=== PATIENT | female | born 1930 | race Caucasian/White ===

== ENCOUNTER 2016-07-04 13:13 | Emergency (ER) | payer MEDICARE, OTHER ==
[~2016-07-04] VITALS: Ht 149.9 cm; Wt 70.8 kg
[~2016-07-04 13:13] MED LIST: LOSA25TA4 PO; METO25TA9 PO
--- NOTE | 2016-07-04 14:05 | PHYS DOC ---
Past Medical History Past Medical History: Hypertension Additional Information: nonsmoker Alcohol Use: None Drug Use: None Adult General Chief Complaint Chief Complaint: MULTIPLE COMPLAINTS HPI HPI Patient is a 86 year old female who presents with productive cough for 6 days. She's had fever up to 100.7F at home. She reports feeling lightheaded and states "my head feels like feathers." She has upper abdominal cramping and nausea without vomiting. She denies difficulty breathing, but has intermittent mild chest pain. She's not had any diarrhea or urinary symptoms. She does not have any headache. The patient saw her PCP 3 days ago. She was prescribed Mucinex, a Z-Olvin, and Tessalon Perles for her cough. The lightheaded feeling began after starting the medications. Her PCP is Dr. Tapia. Review of Systems Review of Systems Constitutional: Fever. Eyes: Denies change in visual acuity, redness, or eye pain. [] HENT: Denies ear pain, nasal congestion or sore throat. [] Respiratory: Denies shortness of breath. Reports productive cough. Cardiovascular: Denies palpitations or edema. Reports intermittent chest pain. GI: Denies vomiting, bloody stools or diarrhea. Reports upper abdominal pain and nausea. : Denies dysuria, hematuria or urinary frequency. [] Musculoskeletal: Denies back pain or joint pain. [] Integument: Denies rash or skin lesions. [] Neurologic: Denies headache, focal weakness or sensory changes. Reports feeling lightheaded. Endocrine: Denies polyuria or polydipsia. [] Psych: Denies anxiety or depression. [] All systems reviewed and negative unless otherwise stated in the HPI. Current Medications Current Medications Current Medications Medications (Trade) Dose Ordered Sig/Yordy Start Time Stop Time Status Last Admin Dose Admin Albuterol/ Ipratropium (Duoneb) 3 ml 1X ONCE 07/04/16 14:15 07/04/16 14:16 DC 07/04/16 14:12 3 ML Methylprednisolone Sodium Succinate (Solu-Medrol 125mg Vial) 125 mg 1X ONCE 07/04/16 14:15 07/04/16 14:16 DC 07/04/16 14:47 125 MG Allergies Allergies Allergies Coded Allergies Type Severity Reaction Last Updated Verified Penicillins Allergy Intermediate Swelling 02/18/16 No Physical Exam Physical Exam Constitutional: Well developed, well nourished, no acute distress, non-toxic appearance. [] HENT: Normocephalic, atraumatic, bilateral external ears normal, oropharynx moist, no oral exudates, nose normal. [] Eyes: PERRLA, EOMI, conjunctiva normal, no discharge. [] Neck: Normal range of motion, no tenderness, supple, no stridor. [] Cardiovascular: Heart rate regular rhythm, no murmur [] Lungs & Thorax: Bilateral breath sounds clear to auscultation without wheezes, rales, or rhonchi. Productive cough is heard. Abdomen: Bowel sounds normal, soft, no tenderness, no masses, no pulsatile masses. [] Skin: Warm, dry, no erythema, no rash. [] Back: No tenderness, no CVA tenderness. [] Extremities: No tenderness, no cyanosis, no clubbing, ROM intact, no edema. 2+ DP pulses bilaterally. Neurologic: Alert and oriented X 3, normal motor function, normal sensory function, no focal deficits noted. [] Psychologic: Affect normal, judgement normal, mood normal. [] Current Patient Data Vital Signs Vital Signs Date Time Temp Pulse Resp B/P Pulse Ox O2 Delivery O2 Flow Rate FiO2 07/04/16 16:03 84 18 130/84 98 Room Air 07/04/16 14:27 99.9 99.9 Lab Values Laboratory Tests Test 07/04/16 14:14 07/04/16 14:34 Influenza Type A Antigen Negative (NEGATIVE) Influenza Type B Antigen Negative (NEGATIVE) White Blood Count 9.1x10^3/uL (4.0-11.0) Red Blood Count 4.50x10^6/uL (3.50-5.40) Hemoglobin 13.4g/dL (12.0-15.5) Hematocrit 40.4% (36.0-47.0) Mean Corpuscular Volume 90fL (79-100) Mean Corpuscular Hemoglobin 30pg (25-35) Mean Corpuscular Hemoglobin Concent 33g/dL (31-37) Red Cell Distribution Width 12.8% (11.5-14.5) Platelet Count 157x10^3/uL (140-400) Neutrophils (%) (Auto) 75% (31-73) H Lymphocytes (%) (Auto) 19% (24-48) L Monocytes (%) (Auto) 5% (0-9) Eosinophils (%) (Auto) 0% (0-3) Basophils (%) (Auto) 1% (0-3) Neutrophils # (Auto) 6.8x10^3uL (1.8-7.7) Lymphocytes # (Auto) 1.7x10^3/uL (1.0-4.8) Monocytes # (Auto) 0.5x10^3/uL (0.0-1.1) Eosinophils # (Auto) 0.0x10^3/uL (0.0-0.7) Basophils # (Auto) 0.1x10^3/uL (0.0-0.2) Sodium Level 134mmol/L (136-145) L Potassium Level 3.7mmol/L (3.5-5.1) Chloride Level 98mmol/L (98-107) Carbon Dioxide Level 27mmol/L (21-32) Anion Gap 9 (6-14) Blood Urea Nitrogen 20mg/dL (7-20) Creatinine 1.0mg/dL (0.6-1.0) Estimated GFR (Cockcroft-Gault) 52.3 BUN/Creatinine Ratio 20 (6-20) Glucose Level 130mg/dL (70-99) H Calcium Level 8.9mg/dL (8.5-10.1) Total Bilirubin 0.4mg/dL (0.2-1.0) Aspartate Amino Transferase (AST) 19U/L (15-37) Alanine Aminotransferase (ALT) 17U/L (14-59) Alkaline Phosphatase 46U/L (46-116) Troponin I Quantitative < 0.017ng/mL (0.000-0.055) YF-Nbh-H-Type Natriuretic Peptide 192pg/mL (0-449) Total Protein 7.7g/dL (6.4-8.2) Albumin 3.5g/dL (3.4-5.0) Albumin/Globulin Ratio 0.8 (1.0-1.7) L Laboratory Tests 07/04/16 14:34 Laboratory Tests 07/04/16 14:34 EKG EKG EKG at 1402. Heart rate 74 bpm. Sinus rhythm without any acute ischemic changes or STEMI, as interpreted by Dr. Huber. Radiology/Procedures Radiology/Procedures REASON: cough, soa PROCEDURE: CHEST PA & LATERAL EXAM: Chest, 2 views. HISTORY: Cough. COMPARISON: None. FINDINGS: Frontal and lateral views of the chest are obtained. There is no infiltrate, effusion or pneumothorax. There is basilar atelectasis. There is stable widening of the right paratracheal stripe. The heart is normal in size. There is a moderate hiatal hernia. There is hyperinflation. IMPRESSION: 1. No acute pulmonary finding. 2. Hyperinflation likely due to emphysema. Course & Med Decision Making Course & Med Decision Making Pertinent Labs and Imaging studies reviewed. (See chart for details) The patient is a 86-year-old female who presents with cough, fever, and nausea for one week. She is already on Mucinex, see back, and Tessalon Perles for her cough prescribed by her PCP earlier this week. On exam, her lungs are clear, she is not in respiratory distress, and vitals are stable. She was given a DuoNeb treatment in the emergency department with improvement in her cough. Chest x-ray does not show any pneumonia. EKG is nonischemic. Troponin is negative. Influenza A and B are negative. There are no other significant laboratory abnormalities. I discussed the results with the patient and her son. I reassured her that her results are indicative of a viral infection. I offered prescription for a cough syrup. Patient's son states he will buy some cough drops for her. She states that she will complete her antibiotic course and follow-up with her doctor if she is not improving. Return precautions were discussed. The patient verbalizes understanding and agrees with plan. Dragon Disclaimer Dragon Disclaimer This electronic medical record was generated, in whole or in part, using a voice recognition dictation system. Departure Departure Impression: Primary Impression: Bronchitis Disposition: 01 HOME, SELF-CARE Condition: STABLE Referrals: Gerald TAPIA MD (PCP) Patient Instructions: Acute Bronchitis, [id number] Additional Instructions: Your chest x-ray does not show any pneumonia. Your flu test was negative. Your labs do not show any concerning abnormalities. Please continue the medications prescribed by your doctor. Please follow-up with your doctor if your symptoms continue. Return to the emergency department if you have high fever, shortness of breath, chest pain, or other new or concerning symptoms. CHRISS SIMMONS Jul 04, 2016 14:05
[2016-07-04] MEDS ORDERED: IPRATRPIUM/ALBUTEROL 0.5/2.5MG 3 ML NEBU. NEB ONE (14:15)
[2016-07-04] MEDS ORDERED: methylPREDNISolone SOD SUCC PF 125 MG/2 ML VIAL. IV ONE (14:15)
--- NOTE | 2016-07-04 14:18 | EKG ---
[facility] [address] [place] [address] Test Date: 2016-07-04 Test Time: 14:02:17 Pat Name: GUILLE SANCHEZ Department: Room: Gender: F Clinical Staff Educator: : [id number] Requested By: CHRISS SIMMONS Order Number: [id number] Reading MD: Napoleon Gray Measurements Intervals [place] Rate: 75 P: -21 [place]: 148 QRS: 47 QRSD: 86 T: -8 QT: 366 QTc: 411 Interpretive Statements SINUS RHYTHM NON-SPECIFIC ST/T CHANGES Electronically Signed On 07-06-2016 10:35:25 OXYACETYLENE WELDER by Naploeon Gray
--- NOTE | 2016-07-04 14:23 | RAD ---
EXAM: Chest, 2 views. HISTORY: Cough. COMPARISON: None. FINDINGS: Frontal and lateral views of the chest are obtained. There is no infiltrate, effusion or pneumothorax. There is basilar atelectasis. There is stable widening of the right paratracheal stripe. The heart is normal in size. There is a moderate hiatal hernia. There is hyperinflation. IMPRESSION: 1. No acute pulmonary finding. 2. Hyperinflation likely due to emphysema.
[2016-07-04 14:53] LABS: BASO # 0.1 x10^3/uL (0.0-0.2); BASO % 1 % (0-3); EOS % 0 % (0-3); HEMATOCRIT 40.4 % (36.0-47.0); HEMOGLOBIN 13.4 g/dL (12.0-15.5); LYMPH # 1.7 x10^3/uL (1.0-4.8); LYMPH % 19 % (24-48); MEAN CORPUSCULAR HEMOGLOBIN 30 pg (25-35); MEAN CORPUSCULAR HGB CONC 33 g/dL (31-37); MEAN CORPUSCULAR VOLUME 90 fL (79-100); MONO % 5 % (0-9); NEUT % 75 % (31-73); PLATELET COUNT 157 x10^3/uL (140-400); RED CELL DISTRIBUTION WIDTH 12.8 % (11.5-14.5); WHITE BLOOD COUNT 9.1 x10^3/uL (4.0-11.0)
[2016-07-04 14:54] LABS: OBC FLU VALID
[2016-07-04 15:08] LABS: CALCIUM 8.9 mg/dL (8.5-10.1); GFR 52.3; POTASSIUM 3.7 mmol/L (3.5-5.1)
[2016-07-04 15:12] LABS: ALBUMIN 3.5 g/dL (3.4-5.0); ALBUMIN/GLOBULIN RATIO 0.8 (1.0-1.7); TOTAL BILIRUBIN 0.4 mg/dL (0.2-1.0); TOTAL PROTEIN 7.7 g/dL (6.4-8.2)
[2016-07-04 16:03] VITALS: BP 130/84
== END 2016-07-04 16:06 | disposition home or self-care (01) ==
LOC: ER 13:13
DX: J40 Bronchitis, not specified as acute or chronic (principal); I10 Essential (primary) hypertension; Z88.0 Allergy status to penicillin
CPT/HCPCS: 36415; 71020; 80053; 83880; 84484; 85027; 87804; 93005; 94250; 94640; 96374; 99285; J2930; J7620

== ENCOUNTER 2017-07-30 14:26 | Inpatient (IN) | payer OTHER ==
[2017-07-30 14:40] LABS: POC GLUCOSE 154 mg/dL (70-99)
[2017-07-30 15:12] LABS: ADD MAN DIFF? NO
[2017-07-30 15:16] LABS: BASO # 0.1 x10^3/uL (0.0-0.2); BASO % 1 % (0-3); EOS # 0.2 x10^3/uL (0.0-0.7); EOS % 3 % (0-3); HEMATOCRIT 39.7 % (36.0-47.0); HEMOGLOBIN 13.2 g/dL (12.0-15.5); LYMPH % 28 % (24-48); MEAN CORPUSCULAR HEMOGLOBIN 30 pg (25-35); MEAN CORPUSCULAR HGB CONC 33 g/dL (31-37); MEAN CORPUSCULAR VOLUME 91 fL (79-100); MONO # 0.5 x10^3/uL (0.0-1.1); MONO % 6 % (0-9); NEUT # 4.6 x10^3uL (1.8-7.7); NEUT % 63 % (31-73); PLATELET COUNT 199 x10^3/uL (140-400); RED BLOOD COUNT 4.37 x10^6/uL (3.50-5.40); RED CELL DISTRIBUTION WIDTH 13.4 % (11.5-14.5); WHITE BLOOD COUNT 7.3 x10^3/uL (4.0-11.0)
[2017-07-30 15:42] LABS: ANION GAP 9 (6-14); BLOOD UREA NITROGEN 21 mg/dL (7-20); CALCIUM 8.8 mg/dL (8.5-10.1); CARBON DIOXIDE 28 mmol/L (21-32); CHLORIDE 102 mmol/L (98-107); GFR 52.2; GLUCOSE 160 mg/dL (70-99); POTASSIUM 3.4 mmol/L (3.5-5.1); SODIUM 139 mmol/L (136-145)
[2017-07-30 15:47] LABS: TROPONINI < 0.017 ng/mL (0.000-0.055)
[2017-07-30 15:49] LABS: ALBUMIN 3.3 g/dL (3.4-5.0); ALK PHOS 48 U/L (46-116); ALT (SGPT) 20 U/L (14-59); AST (SGOT) 16 U/L (15-37); DIRECT BILIRUBIN 0.1 mg/dL (0.0-0.2); LIPASE 161 U/L (73-393); TOTAL BILIRUBIN 0.3 mg/dL (0.2-1.0); TOTAL PROTEIN 7.6 g/dL (6.4-8.2)
[2017-07-30 15:59] LABS: PARTIAL THROMBOPLASTIN TIME 24 SEC (24-38); PROTHROMBIN TIME PATIENT 12.5 SEC (11.7-14.0)
[2017-07-30 17:12] LABS: BILIRUBIN,URINE NEGATIVE (NEG); CLARITY,URINE CLEAR; COLOR,URINE YELLOW; GLUCOSE,URINE NEGATIVE (NEG); NITRITE,URINE NEGATIVE (NEG); PH,URINE 5.5; PROTEIN,URINE NEGATIVE (NEG-TRACE); UROBILINOGEN,URINE 0.2 mg/dL (0.2 mg/dL)
[2017-07-30 17:17] LABS: BACTERIA,URINE FEW /HPF (0-FEW); RBC,URINE 0 /HPF (0-2); SQUAMOUS EPITHELIAL CELL,UR MOD /LPF
[2017-07-30] MEDS ORDERED: ONDANSETRON PF 4 MG/2 ML VIAL. IV (17:30)
[2017-07-30] MEDS ORDERED: MORPHINE SULFATE 2 MG/ML DISP.SYRIN. IV (17:30)
[2017-07-30] MEDS: cloNIDine HCL 0.1 MG TABLET PO (19:46)
[2017-07-31 05:58] LABS: ANION GAP 6 (6-14); BLOOD UREA NITROGEN 17 mg/dL (7-20); CALCIUM 8.6 mg/dL (8.5-10.1); CARBON DIOXIDE 28 mmol/L (21-32); CHLORIDE 104 mmol/L (98-107); CREATININE 0.8 mg/dL (0.6-1.0); GFR 67.5; GLUCOSE 100 mg/dL (70-99); POTASSIUM 3.7 mmol/L (3.5-5.1); SODIUM 138 mmol/L (136-145)
[2017-07-31] MEDS ORDERED: cloNIDine HCL 0.1 MG TABLET PO (06:15)
[2017-07-31 08:37] LABS: ADD MAN DIFF? NO
[2017-07-31 08:41] LABS: BASO # 0.1 x10^3/uL (0.0-0.2); BASO % 1 % (0-3); EOS # 0.2 x10^3/uL (0.0-0.7); EOS % 3 % (0-3); HEMATOCRIT 37.8 % (36.0-47.0); HEMOGLOBIN 12.7 g/dL (12.0-15.5); LYMPH # 1.4 x10^3/uL (1.0-4.8); LYMPH % 19 % (24-48); MEAN CORPUSCULAR HEMOGLOBIN 31 pg (25-35); MEAN CORPUSCULAR HGB CONC 34 g/dL (31-37); MEAN CORPUSCULAR VOLUME 91 fL (79-100); MONO # 0.6 x10^3/uL (0.0-1.1); MONO % 8 % (0-9); NEUT # 5.4 x10^3uL (1.8-7.7); NEUT % 71 % (31-73); PLATELET COUNT 184 x10^3/uL (140-400); RED BLOOD COUNT 4.16 x10^6/uL (3.50-5.40); RED CELL DISTRIBUTION WIDTH 13.4 % (11.5-14.5); WHITE BLOOD COUNT 7.6 x10^3/uL (4.0-11.0)
[2017-07-31] MEDS: METOPROLOL SUCC 24HR ER 50 MG TAB.ER.24H. PO (09:00)
[2017-07-31] MEDS ORDERED: amLODIPine BESYLATE 2.5 MG TABLET PO (09:00)
[2017-07-31] MEDS ORDERED: MORPHINE SULFATE 4 MG/ML DISP.SYRIN. IV (09:36)
[2017-07-31] MEDS: LOSARTAN POTASSIUM 50 MG TABLET. PO (09:45)
[2017-07-31] MEDS: amLODIPine BESYLATE 2.5 MG TABLET PO (10:16)
[2017-07-31] MEDS: ASPIRIN 325 MG TABLET PO (12:43)
[2017-07-31] MEDS: GADOBUTROL 7.5 MMOL/7.5 ML VIAL IV (16:15)
[2017-07-31 16:48] LABS: CHOLESTEROL 185 mg/dL (0-200); CHOLESTEROL/HDL RATIO 3.9; HDLC 47 mg/dL (40-60); LDLC 107 mg/dL (0-100); NON-HDL CHOLESTEROL 138 mg/dL (0-129); TRIGLYCERIDES 154 mg/dL (0-150); VLDLC 31 mg/dL (0-40)
[2017-07-31 19:14] LABS: MRSA BY PCR Negative (Negative)
[2017-07-31] MEDS: ATORVASTATIN CALCIUM 10 MG TABLET. PO (20:40)
[2017-08-01 05:37] LABS: CHOLESTEROL 177 mg/dL (0-200); HDLC 55 mg/dL (40-60); LDLC 99 mg/dL (0-100); NON-HDL CHOLESTEROL 122 mg/dL (0-129); TRIGLYCERIDES 114 mg/dL (0-150); VLDLC 23 mg/dL (0-40)
[2017-08-01 05:38] LABS: CHOLESTEROL/HDL RATIO 3.2
[2017-08-01] MEDS: PANTOPRAZOLE 40 MG TABLET.DR. PO (07:30)
[2017-08-01] MEDS: amLODIPine BESYLATE 5 MG TABLET PO (07:59)
[2017-08-01] MEDS: LOSARTAN POTASSIUM 50 MG TABLET. PO (07:59)
[2017-08-01] MEDS: ASPIRIN 325 MG TABLET PO (07:59)
[2017-08-01] MEDS: METOPROLOL SUCC 24HR ER 50 MG TAB.ER.24H. PO (08:01)
== END 2017-08-01 12:30 | disposition home or self-care (01) | DRG 69 ==
LOC: 5 NORTH 07-31 14:00 → ER 14:26 → 1 WEST ICU 17:02
PROVIDERS: Family Medicine
DX: G45.9 Transient cerebral ischemic attack, unspecified (principal); E11.9 Type 2 diabetes mellitus without complications; R47.01 Aphasia; D32.9 Benign neoplasm of meninges, unspecified; E78.5 Hyperlipidemia, unspecified; G93.9 Disorder of brain, unspecified; H54.62 Unqualified visual loss, left eye, normal vision right eye; I10 Essential (primary) hypertension; M81.0 Age-related osteoporosis without current pathological fracture; Z79.82 Long term (current) use of aspirin; Z79.899 Other long term (current) drug therapy; Z90.710 Acquired absence of both cervix and uterus; Z88.0 Allergy status to penicillin; Z90.49 Acquired absence of other specified parts of digestive tract
CPT/HCPCS: 36415; 70450; 70553; 80048; 80061; 80076; 81001; 82962; 83690; 84484; 85025; 85610; 85730; 86850; 86900; 86901; 87641; 93005; 93306; 93880; 97162-GP; 97165-GO; 99285; 99285-25; A9585

== ENCOUNTER → 2017-10-18 | Outpatient (CLI) | payer OTHER ==
[2017-10-18] MEDS: GADOBUTROL 7.5 MMOL/7.5 ML VIAL IV (15:14)
== END | disposition home or self-care (01) ==
LOC: KCIC MRI 14:29
DX: D32.0 Benign neoplasm of cerebral meninges (principal); G45.9 Transient cerebral ischemic attack, unspecified; Z86.011 Personal history of benign neoplasm of the brain
CPT/HCPCS: 70553; A9585